=== PATIENT | female | born 1940 | race Hispanic/Latino ===

== ENCOUNTER 2019-09-14 17:45 | Emergency (ER) | payer MEDICARE ==
[2019-09-14 19:23] LABS: APPEARANCE,URINE Clear (CLEAR); BILIRUBIN,URINE Small (NEGATIVE); COLOR,URINE Dark Yellow (YELLOW); GLUCOSE, URINE (UA) TRACE mg/dL (NEGATIVE); KETONES,URINE Trace mg/dL (NEGATIVE); LEUKOCYTE ESTERASE ,URINE Small (NEGATIVE); NITRATE,URINE Positive (NEGATIVE); OCCULT BLOOD,URINE Negative (NEGATIVE); PROTEIN,URINE Trace mg/dL (NEGATIVE)
[2019-09-14 19:36] LABS: BACTERIA,URINE Moderate /HPF (None Seen); MUCUS,URINE Moderate LPF (None Seen); SQUAMOUS EPITHELIAL CELL,UR Few /HPF (0-2)
[2019-09-14 19:37] LABS: BASOPHILS % (AUTO) 0.4 % (0.0-5.0); HEMATOCRIT 40.7 % (36-48); LYMPHOCYTES % (AUTO) 6.9 % (21.0-51.0); MEAN CORPUSCULAR HEMOGLOBIN 26.3 pg (27.0-33.0); MEAN CORPUSCULAR HGB CONC 31.4 g/dL (32.0-36.0); MEAN CORPUSCULAR VOLUME 83.6 fL (79-99); MONOCYTES % (AUTO) 4.2 % (3.0-13.0); NEUTROPHILS % (AUTO) 88.1 % (40.0-77.0); PLATELET COUNT (AUTO) 175 K/uL (130-400); RED BLOOD CELL COUNT(AUTO) 4.87 MIL/uL (4.00-5.50); RED CELL DISTRIBUTION WIDTH 13.6 % (11.0-15.5); WHITE BLOOD COUNT (AUTO) 12.8 K/uL (4.8-10.8)
[2019-09-14 19:47] LABS: CREATININE 1.7 mg/dL (0.5-1.5)
[2019-09-14] MEDS ORDERED: CEFTRIAXONE SODIUM 1 GM ONE (20:25)
[2019-09-14] MEDS ORDERED: ACETAMINOPHEN EXTRA STRENGTH 500 MG TABLET ONE (20:25)
[2019-09-14] MEDS ORDERED: SODIUM CHLORIDE 0.9% 50 ML IV ONE (20:26)
[2019-09-15] MEDS ORDERED: GLIP5TAB11 PO (17:51)
[2019-09-15] MEDS ORDERED: MELO-108 PO (17:51)
[2019-09-15] MEDS ORDERED: TRAM50TA4 PO (17:51)
[2019-09-15] MEDS ORDERED: LISI1TAB29 PO (17:51)
[2019-09-15] MEDS ORDERED: GABA-531 PO (17:51)
[2019-09-15] MEDS ORDERED: SIMV80TA91 PO (17:51)
[2019-09-15] MEDS ORDERED: OMEP40CA13 PO (17:51)
== END 2019-09-14 21:44 | disposition home or self-care (01) ==
LOC: EDH 17:45
DX: J10.1 Influenza due to other identified influenza virus with other respiratory manifestations (principal); S80.212A Abrasion, left knee, initial encounter; S80.211A Abrasion, right knee, initial encounter; N39.0 Urinary tract infection, site not specified; J18.9 Pneumonia, unspecified organism; E11.9 Type 2 diabetes mellitus without complications; I10 Essential (primary) hypertension; M19.90 Unspecified osteoarthritis, unspecified site; Z98.890 Other specified postprocedural states; W18.39XA Other fall on same level, initial encounter; Y93.89 Activity, other specified; Y92.098 Other place in other non-institutional residence as the place of occurrence of the external cause; Y99.8 Other external cause status
CPT/HCPCS: 36415; 71046; 73562 ×2; 80048; 81001; 85025; 87077; 87088; 87186; 87804 ×2; 96374; 99285; J0696